=== PATIENT | male | born 1995 | race African-American/Black ===

== ENCOUNTER 2019-02-06 19:33 | Emergency (ER) | payer OTHER ==
[~2019-02-06] VITALS: Ht 188 cm; Wt 102.2 kg
[2019-02-06 19:52] VITALS: BP 175/49; Ht 188 cm; Wt 102.2 kg
== END 2019-02-06 21:18 | disposition left against medical advice (07) ==
LOC: ED 19:33
DX: Z53.21 Procedure and treatment not carried out due to patient leaving prior to being seen by health care provider (principal)

== ENCOUNTER 2019-03-05 15:54 | Emergency (ER) | payer OTHER ==
[~2019-03-05] VITALS: Ht 188 cm; Wt 104.3 kg
[2019-03-05 17:41] VITALS: Ht 188 cm; Wt 104.3 kg
[2019-03-05 20:44] VITALS: BP 150/82
== END 2019-03-05 20:44 | disposition home or self-care (01) ==
LOC: ED 15:54
DX: J06.9 Acute upper respiratory infection, unspecified (principal)
CPT/HCPCS: J1100